=== PATIENT | female | born 1990 | race Caucasian/White ===

== ENCOUNTER 2024-12-28 19:25 | Emergency (ER) | payer MEDICAID, SELFPAY ==
[2024-12-28 19:27] VITALS: BP 101/64
[2024-12-28 19:46] LABS: Hematocrit 36.7 % (37.0-47.0); Mean Corp Hgb Conc. 35.4 g/dL (33.0-37.0); Mean Corpuscular Hgb 28.3 pg (27.0-31.0); Mean Platelet Volume 8.7 fL (7.4-10.4); Platelet Count 363 10^3/uL (130-400); Red Blood Cell Count 4.59 10^6/uL (4.20-5.40); Red Cell Dist. Width 12.5 % (11.5-14.5); White Blood Cell Count 10.2 10^3/uL (4.8-10.8)
[2024-12-28 19:51] LABS: Urine Albumin 2+ (Neg - Trace); Urine Bilirubin 1+ (Negative); Urine Character Clear (Clear); Urine Color Yellow; Urine Glucose Negative (Negative); Urine Ketone 3+ (Negative); Urine Leukocyte 2+ (Negative); Urine Nitrite Negative (Negative); Urine Occult Blood Negative (Negative); Urine Specific Gravity 1.025 (<1.030); Urine Urobilinogen 2+ (Neg - 1+)
[2024-12-28 19:57] LABS: HCG, Serum Qualitative Screen Negative
[2024-12-28 20:01] LABS: Blood Urea Nitrogen 14 mg/dl (7-17); Calcium 9.4 mg/dl (8.4-10.2); Carbon Dioxide 26 mmol/L (22-30); Chloride 102 mmol/L (98-107); Glucose 125 mg/dl (70-99); Lipase 179 U/L (23-300); Potassium 3.7 mmol/L (3.5-5.1); Sodium 137 mmol/L (135-145); eGFR > 60.00
[2024-12-28 20:02] LABS: Urine Mucus Moderate; Urine Squamous Cell >30 /LPF (Few)
[2024-12-28 20:03] LABS: Urine Bacteria Many (Negative); Urine Red Blood Cell 0-2 /HPF (0-2)
[2024-12-28 20:05] VITALS: BP 110/72
[2024-12-28] MEDS: ZOFRAN 4 MG IV (20:47)
[2024-12-28] MEDS: TORADOL 15 MG IV (20:47)
[2024-12-28] MEDS: NSS 1000 IV (20:48)
--- NOTE | 2024-12-28 23:02 | ED.GENMED ---
History of Present Illness
General
Chief Complaint: Abdominal Symptoms
Source: patient
Exam Limitations: none
Time Seen by Provider: 12/28/24 20:08
Nursing documentation reviewed up to this point in time: agreed with
History of Present Illness
History of Present Illness:
34-year-old female presenting to the emergency department today with concerns of nausea vomiting low back pain since last night. Does have a history of chronic low back pain unsure if this is just an exacerbation of that. Denies any ongoing
abdominal pain pelvic pain vaginal symptoms. No urinary symptoms.
Review of Systems
Review of Systems
Allergies reviewed?: Yes
All Other Systems: ROS reviewed and negative except as documented in HPI and ROS
Phy Exam
Physical Exam
Physical Exam:
GENERAL: Alert , in no apparent distress
EYE: pupils equal and reactive
NECK: Supple, no significant adenopathy.
ENT: o/p clr, mmm.
CARDIAC: Regular rate and rhythm .
LUNGS: Clear breath sounds bilaterally, no acute respiratory distress, no wheezes/rales/rhonchi
ABDOMEN: Soft, without focal tenderness, no r/g, no cvat
NEUROLOGICAL: Alert and oriented, no focal neuro deficits
SKIN: Warm and dry, skin intact.
MUSCULOSKELETAL: No edema, well perfused.
PSYCH: Normal and appropriate interaction.
Sepsis
Sepsis Screening
Sepsis Assessment: Sepsis Ruled Out
Sepsis Screen
Sepsis Screen: Sepsis Ruled Out
Date: 12/28/24
Time: 23:05
Course
Orders/Labs/Results
Orders:
Orders
12/28/24 19:32
Test Result ONCE
12/28/24 19:36
Basic Metabolic Panel Urgent
Complete Blood Count/No Diff Urgent
HCG, Serum Qualitative Screen Urgent
Lipase Urgent
12/28/24 19:40
Urinalysis Urgent
Date Specimen was Collected: 12/28/24
Time Specimen was Collected: 19:32
Urine Microscopic Urgent
Date Specimen was Collected: 12/28/24
Time Specimen was Collected: 19:32
12/28/24 20:28
CT Abd/pel Without Iv Or Oral Urgent
Comment:
Reason For Exam: R flank pain, fever
Ketorolac [Toradol] 15 mg IV NOW STA
Ondansetron Injectable [Zofran] 4 mg IV NOW STA
12/28/24 20:29
0.9% Sodium Chloride 1000 ml [Nss] 1,000 ml IV BOLUS
12/28/24 21:25
US Pelvis Only (non-obstetric) Urgent
Comment:
Reason For Exam: large teratoma, eval for ovary flow
Abnormal Lab Results
12/28/24 12/28/24
19:36 19:40
Hct 36.7 L %
(37.0-47.0)
MCV 80.0 L fL
(81.0-99.0)
Glucose 125 H mg/dl
(70-99)
Urine Ketones 3+ A
(Negative)
Urine Bilirubin 1+ A
(Negative)
Urine Urobilinogen 2+ A
(Neg - 1+)
Ur Leukocyte Esterase 2+ A
(Negative)
Urine WBC 6-10 A /HPF
(0-5)
Urine Bacteria Many A
(Negative)
Urine Albumin 2+ A
(Neg - Trace)
12/28/24 19:36
12/28/24 19:36
Vital Signs
Initial and Last Documented VS:
Initial Vital Signs
Temp Pulse Resp BP Pulse Ox
100.7 F H 94 22 101/64 98
12/28/24 19:27 12/28/24 19:27 12/28/24 19:27 12/28/24 19:27 12/28/24 19:27
Last Documented Vital Signs
Temp Pulse Resp BP Pulse Ox
100.7 F H 92 20 110/72 98
12/28/24 19:27 12/28/24 20:05 12/28/24 20:05 12/28/24 20:05 12/28/24 20:05
MDM/Problems Addressed
MDM/Problems Addressed:
34-year-old female presenting to the emergency department today with concerns of nausea vomiting as well as a few loose bowel movements since last night. Also no some back pain but does have a history of chronic back pain and is unsure if this was
just an exacerbation of that. On arrival low-grade temperature of 100.7. Initially had some nausea was given medication with complete resolution of symptoms. Initially CT scan showing teratoma. This was described to the patient she claims that
she is aware of this and is currently following up with a damper worker for this and the likely moved in the future. She is now completely asymptomatic was initially recommended to get an ultrasound to rule out torsion. She claims that she feels
well and would like to follow-up as an outpatient. I feel that this is reasonable considering she is currently asymptomatic. Return precautions given.
*Critical Care Note
Total Time (30-74mins, 75-104mins- exclusive of procedures): Not Applicable
ED Attending Note
-
Portions of this chart may have been created with voice recognition software.� Occasional wrong word or��sound alike� substitutions may have occurred due to the inherent limitations of voice recognition software.
Discharge Plan
Departure
Patient Disposition: Home (Routine Discharge)
Date of Disposition: 12/28/24
Time of Disposition: 23:02
Patient with high blood pressure during this ER visit?: No
Condition: Good
Covid-19: Not Applicable
Discharge Problem:
Vomiting
Instructions: Nausea and Vomiting, Adult (DC)
Prescriptions:
New
ondansetron 4 mg tablet,disintegrating
4 mg PO Q6H PRN (Reason: nausea and vomiting) Qty: 7 0RF
Referrals:
UNKNOWN - PT DOES,NOT KNOW [Family Provider] -
Activity Restrictions/Additional Instructions:
You came to the emergency department today with concerns of nausea vomiting some discomfort to your back since last night. Here you had a reassuring assessment. You do have a teratoma will need to follow-up closely for. Return for any worsening,
new or concerning symptoms.
Interventions
Interventions:
*Risk Screen - Suicide Last Done: 12/28/24 19:27
*Neglect/Abuse Screening Last Done: 12/28/24 19:31
LL-Tglxbc-Ezmhnhbvuk Assessment Last Done: 12/28/24 20:03
Discharge Date and Time
Print Language: THAI
[2024-12-28 23:36] VITALS: BP 110/61
== END 2024-12-28 23:37 | disposition home or self-care (01) ==
LOC: EMR 19:25
PROVIDERS: Student in an Organized Health Care Education/Training Program; EMERGENCY PHYSICIAN Emergency Medicine
DX: R11.2 Nausea with vomiting, unspecified (principal); R50.9 Fever, unspecified; M54.50 Low back pain, unspecified; G89.29 Other chronic pain
CPT/HCPCS: 96374; 96375; 96361; 99284; 74176; 80048; 81003; 81015; 83690; 84703; 85027